=== PATIENT | female | born 1990 | race Caucasian/White ===

== ENCOUNTER 2016-06-17 19:09 | Emergency (ER) | payer OTHER ==
[~2016-06-17] VITALS: Ht 152.4 cm; Wt 83.8 kg
[~2016-06-17 19:09] MED LIST: AMOXICILLIN875 MG PO; COUGH DROPS1 EACH MM; NAPROSYN500 MG PO; PEN-VEE K,VEET500 MG PO; PHENERGAN-CODE120 ML PO
[2016-06-17 19:33] VITALS: BP 120/84
== END 2016-06-17 21:30 | disposition left against medical advice (07) ==
LOC: EME 19:09
DX: M54.89 Other dorsalgia (principal); R07.9 Chest pain, unspecified; M79.602 Pain in left arm; Z53.21 Procedure and treatment not carried out due to patient leaving prior to being seen by health care provider
CPT/HCPCS: 71020; 80048; 84484; 85027; 93005

== ENCOUNTER 2016-09-08 20:32 | Emergency (ER) | payer OTHER ==
[~2016-09-08] VITALS: Ht 152.4 cm; Wt 84.1 kg
[2016-09-08 22:02] LABS: BASOPHIL COUNT 0.1 K/uL (0-0.1); EOSINOPHIL (%) 3.5 % (0-5); EOSINOPHIL COUNT 0.4 K/uL (0-0.3); HEMATOCRIT 41.3 % (36.0-46.0); IMMATURE GRANULOCYTE (%) 0.5 % (0.0-0.7); IMMATURE GRANULOCYTE COUNT 0.1 K/uL; INSTRUMENT ABS NEUTROPHIL CT 5.7 K/uL; LYMPHOCYTE COUNT 3.2 K/uL (1.0-2.8); MCH 29.2 PG (29.0-34.0); MCHC 33.9 G/DL (30.0-36.0); MCV 86.2 FL (83-99); MEAN PLAT.VOLUME 9.8 uM^3 (9.5-12.4); MONOCYTE (%) 9.9 % (3-12); NEUTROPHIL (%) 54.9 % (45-76); NEUTROPHIL COUNT 5.7 K/uL (1.8-6.4); PLATELET COUNT 229 K/uL (156-360); RBC DIS.WIDTH-CV 12.2 % (11.8-14.6); RBC DIS.WIDTH-SD 38.6 % (39-53); RED BLOOD COUNT 4.79 M/uL (3.80-5.20); WHITE BLOOD COUNT 10.3 K/uL (4.1-10.2)
[2016-09-08 22:58] VITALS: BP 103/75
== END 2016-09-08 23:00 | disposition home or self-care (01) ==
LOC: EME 20:32
PROVIDERS: Physician Assistant
DX: R06.00 Dyspnea, unspecified (principal); F17.200 Nicotine dependence, unspecified, uncomplicated
CPT/HCPCS: 71020; 84702; 85025; 99281; 99284

== ENCOUNTER 2017-06-25 14:54 | Emergency (ER) | payer OTHER ==
[~2017-06-25] VITALS: Ht 152.4 cm; Wt 89.1 kg
[2017-06-25 15:12] VITALS: BP 124/84
[2017-06-25] MEDS ORDERED: PEN-VEE K,VEET500 MG PO (15:45)
[2017-06-25] MEDS ORDERED: NAPROSYN500 MG PO (15:45)
== END 2017-06-25 15:55 | disposition home or self-care (01) ==
LOC: EME 14:54
DX: K04.7 Periapical abscess without sinus (principal); F17.200 Nicotine dependence, unspecified, uncomplicated; Z88.2 Allergy status to sulfonamides
CPT/HCPCS: 99281; 99283

== ENCOUNTER 2017-09-16 21:50 | Emergency (ER) | payer OTHER ==
[~2017-09-16] VITALS: Ht 149.9 cm; Wt 85.0 kg
[2017-09-16 21:57] VITALS: BP 116/89
[2017-09-16] MEDS ORDERED: AUGMENTIN875 MG PO (23:40)
== END 2017-09-16 23:40 | disposition home or self-care (01) ==
LOC: EME 21:50
DX: J32.9 Chronic sinusitis, unspecified (principal); F17.200 Nicotine dependence, unspecified, uncomplicated; Z88.2 Allergy status to sulfonamides
CPT/HCPCS: 99281; 99284